=== PATIENT | male | born 1985 ===

== ENCOUNTER 2016-03-22 03:59 | Emergency (ER) | payer OTHER ==
[2016-03-22] MEDS ORDERED: TAMSULOSIN HCL 0.4 MG CAPSULE PO ONE (04:27)
[2016-03-22] MEDS ORDERED: HYDROmorphone HCL 1 MG/ML SYR ONE ×2 (04:27→06:01)
[2016-03-22] MEDS ORDERED: ONDANSETRON HCL 4 MG/2 ML VIAL ONE (04:27)
[2016-03-22] MEDS ORDERED: oxyCODONE/APAP 5/325 MG PREPAC 1 TAB TABLET PO ONE (04:32)
[2016-03-22 04:40] LABS: BLOOD UREA NITROGEN 14 mg/dL (9-20); CALCIUM 8.7 mg/dL (8.4-10.2); CHLORIDE 105 mmol/L (98-107); EST GLOMERULAR FILTRATION RATE > 60 mL/min; GLUCOSE 114 mg/dL (70-100); POTASSIUM 3.5 mmol/L (3.5-5.1); SODIUM 140 mmol/L (137-145)
[2016-03-22 05:34] LABS: URINE MUCUS NONE SEEN (Up to 25%); URINE SQUAMOUS EPITHELIAL CELL NONE SEEN (<= 15/hpf); URINE WBC NONE SEEN (0-4/hpf)
[2016-03-22 05:44] LABS: URINE APPEARANCE CLEAR; URINE BILIRUBIN NEGATIVE (NEGATIVE); URINE BLOOD 250 Ery/uL (3+) (NEGATIVE); URINE COLOR YELLOW; URINE GLUCOSE NORMAL (NEGATIVE); URINE KETONE NEGATIVE (NEGATIVE); URINE LEUKOCYTE ESTERASE NEGATIVE (NEGATIVE); URINE NITRITE NEGATIVE (NEGATIVE); URINE PH 5.5 (5-7); URINE PROTEIN 30mg/dL (1+) (NEG - TRACE); URINE RBC 50-100/hpf (0-5/hpf); URINE SPECIFIC GRAVITY 1.025 (0.001-1.035); URINE UROBILINOGEN 0.2mg/dL (Normal) (NEG-1mg/dL)
[2016-03-22 05:45] LABS: URINE CALCIUM OXALATE CRYSTALS MANY (Occasional)
[2016-03-22] MEDS ORDERED: KETOROLAC TROMETHAMINE 30 MG/ML VIAL ONE (06:01)
--- NOTE | 2016-03-22 08:04 | ER NURSING DOCUMENTATION ---
Nurse's Notes [facility] Name:Jayden Mccall Age:30 yrs Sex:Male :1985 Arrival Date:03/22/2016 Time:03:59 Bed4 Private MD: Diagnosis:Kidney Stone w/ Colic Presentation: 03/22 04:01 Acuity: NATALY 3 rh 04:07 Presenting complaint: Patient states: Pt was DX with two kidney stones two weeks ago. rh He was placed on a medication he cannot remember and was told he passed the stones. Pt had a follow up ultra sound ten days ago that showed no stones. PT is here tonight with left sided flank pain that radiates down into his groin, pt also is unable to urinate. onset 1 hour ago. Transition of care: Home. 04:07 Method Of Arrival: Walk In Triage Assessment: 04:09 General: Appears uncomfortable, Behavior is cooperative. Pain: Complains of pain in rh left low back and left femoral area. EENT: Oral mucosa is dry. Respiratory: Airway is patent. : Reports inability to void since this AM upon awaking pain. Derm: Skin is intact, is healthy with good turgor, Skin is pink, warm & dry. Historical: - Allergies: PENICILLINS; - Home Meds: 1. meloxicam oral - PMHx: KIDNEY STONES; - PSHx: Appendectomy; HERNIA REPAIR; - Tetanus: < 10 years. - Ebola Screening: : Patient negative for fever greater than or equal to 101.5 degrees Fahrenheit, and additional compatible Ebola Virus Disease symptoms. - Immunization history: Flu Vaccine < 1 year. - Social history: Smoking status: Patient states was never smoker of tobacco. Screenin:11 Infectious Disease Risk None. Abuse screen: Denies threats or abuse. Denies injuries rh from another. Nutritional screening: No deficits noted. Assessment: 04:10 See Triage Assessment done by same RN. rh 07:17 General: pt resting quietly. Pt needs to urinate before going home. . st 08:02 General: pt was able to urinate. urin was concentrated no stone present. . st Vital Signs: 04:05 BP 158 / 96; Pulse 71; Resp 18; Temp 97.6(O); Pulse Ox 96% on R/A; Weight 95.25 kg; rh Height 5 ft. 6 in. (167.64 cm); Pain 9/10; 06:36 BP 115 / 76; Pulse 81; Resp 16; Pulse Ox 93% on 2 lpm NC; rh 08:02 Pain 0/10; st 04:05 Body Mass Index 33.89 (95.25 kg, 167.64 cm) rh ED Course: 04:00 Patient arrived in ED. ma1 04:01 Hina Henry is Primary Nurse. rh 04:01 Triage completed. rh 04:09 Gurinder Zamudio MD is Attending Physician. jm 04:10 Notified ED Physician of patient's arrival and chief complaint. Dr. Zamudio notified. rh 04:11 Valuables Remains with patient Patient has correct armband on for positive rh identification. Bed in low position. Call light in reach. Side rails up X 1. Family accompanied patient. 04:17 Inserted peripheral IV: 20 gauge in left forearm and blood collected. rh 04:25 Oxygen Oxygen administration via nasal cannula @ 2L/min. rh 07:17 Diet: Patient given water. st 07:33 David Torres MD is Referral Physician. jm 07:33 Mervin Desouza MD is Referral Physician. jm 08:02 Bladder Scan performed. Volume in cc: 0. st Administered Medications: 04:19 Drug: NS 0.9% 1000 ml; Route: IV; Rate: bolus; Site: left forearm; rh 05:02 Follow up: IV Status: Completed infusion; IV Intake: 1000ml rh 04:20 Drug: Dilaudid 1 mg; Route: IVP; Site: left forearm; rh 04:30 Follow up: Response: Pain is decreased rh 04:20 Drug: Zofran 4 mg; Route: IVP; Infused Over: 2 mins; Site: left forearm; rh 04:30 Follow up: Response: No adverse reaction rh 04:20 Drug: Flomax - Tamsulosin Capsule 0.4 mg; Route: PO; rh 04:30 Follow up: Response: No adverse reaction rh 05:52 Drug: NS 0.9% 1000 ml; Route: IV; Rate: bolus; Site: left forearm; rh 06:35 Follow up: IV Status: Completed infusion; IV Intake: 1000ml rh 06:00 Drug: Dilaudid 1 mg; Route: IVP; Site: left wrist; fc 06:37 Follow up: Response: Pain is decreased rh 06:00 Drug: Toradol 30 mg; Route: IVP; Site: left wrist; 06:37 Follow up: Response: Pain is decreased rh 08:01 Drug: Percocet Tablet (5 mg-325 mg) 6 tabs; Route: PO; st 08:01 Follow up: Response: Pharmacy closed - take home med pack Point of Care Testing: Urine Dip: 05:20 pH: 5.5; ; Specific [place]: 1.025; Ketones: Negative; Glucose: Negative; Protein: rh Positive (+); Leukocytes: Negative; Nitrite: Negative ; Blood: Large (+++); Bilirubin: Negative ; Urobilinogen: Normal Intake: 05:02 IV: 1000ml; Total: 1000ml. rh 06:35 IV: 1000ml; Total: 2000ml. rh Output: 08:02 Urine: 100ml; Total: 100ml. Outcome: 04:16 Discharge ordered by . khurram 08:01 Discharged to home ambulatory. 08:01 Condition: improved 08:01 Discharge instructions given to patient, Instructed on discharge instructions, follow up and referral plans. medication usage, Prescriptions given X 3. 08:01 IV D/Jose R 08:04 Patient left the ED. 02 09:21 Discharge F/U Call: Unable to reach: no answer nf Signatures: Debby Panchal RN RN st Friel, Nicole, RN RN nf Meyer, John, MD MD jm Hofsess, Rachel rh collins, floyd fc Addison, Melissa ma1
--- NOTE | 2016-03-22 08:04 | ER PHYSICIAN DOCUMENTATION ---
Physician Documentation [facility] Name:Jayden Mccall Age:30 yrs Sex:Male :1985 Arrival Date:03/22/2016 Time:03:59 Bed4 Private MD: Gurinder Thompson Disposition: 03/22/16 04:16 Discharged to Home/Self Care. Impression: Kidney Stone w/ Colic. - Condition is Good. - Discharge Instructions: KIDNEY STONE w/ Colic. - Prescriptions for Percocet 5- 325 mg Oral Tablet - take 1 tablet by ORAL route every 6 hours As needed; 20 tablet. Zofran 4 mg Oral Tablet - take 1 tablet by ORAL route every 12 hours; 6 tablet. Flomax 0.4 mg Oral - take 1 capsule by ORAL route once daily 1/2 hour following the same meal each day; 20 capsule. - Medical Reconciliation form form. - Follow up: Private Physician; When: As needed; Reason: Continuance of care. Follow up: David Torres MD; When: 4- 6 days; Reason: Continuance of care. Follow up: Mervin Desouza MD; When: 4- 6 days; Reason: Continuance of care. - Problem is an ongoing problem. - Symptoms have improved. HPI: 03/22 04:00 This 30 yrs old /[place] Male presents to ER via Walk In with complaints of jm Possible Kidney Stone. 04:00 The patient complains of pain in the left low back and left mid back. The pain radiates jm L LQ. Onset: The symptom(s)/episode began/occurred today. Severity of pain: in the emergency department the pain is actually worse. The patient has experienced a previous episode, and the symptoms today are exactly the same, when dx w kideny stones. . The patient has not recently seen a physician. PT has known 2mm stone in the L kidney and is here for worsening pain. He passed one of the 2mm stones on that side, but was told there was another. He does not have any more pain meds. He feels dehydrated. . Historical: - Allergies: PENICILLINS; - Home Meds: 1. meloxicam oral - PMHx: KIDNEY STONES; - PSHx: Appendectomy; HERNIA REPAIR; - Tetanus: < 10 years. - Ebola Screening: : Patient negative for fever greater than or equal to 101.5 degrees Fahrenheit, and additional compatible Ebola Virus Disease symptoms. - Immunization history: Flu Vaccine < 1 year. - Social history: Smoking status: Patient states was never smoker of tobacco. ROS: 04:30 Constitutional: Negative for fatigue, fever. jm 04:30 ENT: Negative for sinus congestion, sinus pain, sore throat. 04:30 Cardiovascular: Negative for chest pain, paroxysmal nocturnal dyspnea. 04:30 Abdomen/GI: Positive for abdominal pain, Negative for nausea, vomiting. 04:30 Back: Negative for injury or acute deformity, decreased range of motion. 04:30 : Positive for urinary symptoms, pelvic pain, flank pain. Exam: 04:30 Constitutional: The patient appears alert, awake, obese, in obvious distress, mildly jm distressed. 04:30 Cardiovascular: Rate: normal, Rhythm: regular. 04:30 Abdomen/GI: Palpation: mild abdominal tenderness, in the left lower quadrant. 04:30 Back: pain, that is moderate, CVA tenderness, that is moderate, is noted on the left. 04:30 : CVA tenderness, on the left, Bladder: is normal. Vital Signs: 04:05 BP 158 / 96; Pulse 71; Resp 18; Temp 97.6(O); Pulse Ox 96% on R/A; Weight 95.25 kg; rh Height 5 ft. 6 in. (167.64 cm); Pain 9/10; 06:36 BP 115 / 76; Pulse 81; Resp 16; Pulse Ox 93% on 2 lpm NC; rh 08:02 Pain 0/10; st 04:05 Body Mass Index 33.89 (95.25 kg, 167.64 cm) rh MDM: 04:09 Patient medically screened. jm 15:32 Differential diagnosis: nephrolithiasis, pyelonephritis, UTI. Data reviewed: vital jm signs, nurses notes, old medical records, lab test result(s), and as a result, I will discharge patient. Counseling: I had a detailed discussion with the patient and/or guardian regarding: the historical points, exam findings, and any diagnostic results supporting the discharge/admit diagnosis, lab results, the need for outpatient follow up, with the patient's primary care provider, a urologist. Medication response: The patient's symptoms have improved. ED course: Pt better after meds and finally able to urinate after 2LNS and 500ml PO. No reason to repeat the scan, as we know there is a 2mm stone there. Pt ok w pain meds and flomax. Pt given uro f/u as needed. . 03/22 04:44 Order name: BASIC METABOLIC PANEL; Complete Time: 05:47 EDMS 03/22 05:46 Order name: UA W/ MICRO -CULTURE IF IND; Complete Time: 05:47 EDMS 03/22 04:14 Order name: Pulse Ox Continuous; Complete Time: 04:15 jm 03/22 04:15 Order name: Iv Saline Lock; Complete Time: 04:20 jm 03/22 05:29 Order name: Bladder Scan by RN; Complete Time: 05:43 rh 03/22 06:36 Order name: Oxygen; Complete Time: 06:36 rh Dispensed Medications: 04:19 Drug: NS 0.9% 1000 ml; Route: IV; Rate: bolus; Site: left forearm; rh 05:02 Follow up: IV Status: Completed infusion; IV Intake: 1000ml rh 04:20 Drug: Dilaudid 1 mg; Route: IVP; Site: left forearm; rh 04:30 Follow up: Response: Pain is decreased rh 04:20 Drug: Zofran 4 mg; Route: IVP; Infused Over: 2 mins; Site: left forearm; rh 04:30 Follow up: Response: No adverse reaction rh 04:20 Drug: Flomax - Tamsulosin Capsule 0.4 mg; Route: PO; rh 04:30 Follow up: Response: No adverse reaction rh 05:52 Drug: NS 0.9% 1000 ml; Route: IV; Rate: bolus; Site: left forearm; rh 06:35 Follow up: IV Status: Completed infusion; IV Intake: 1000ml rh 06:00 Drug: Dilaudid 1 mg; Route: IVP; Site: left wrist; fc 06:37 Follow up: Response: Pain is decreased rh 06:00 Drug: Toradol 30 mg; Route: IVP; Site: left wrist; fc 06:37 Follow up: Response: Pain is decreased rh 08:01 Drug: Percocet Tablet (5 mg-325 mg) 6 tabs; Route: PO; st 08:01 Follow up: Response: Pharmacy closed - take home med pack st Point of Care Testing: Urine Dip: 05:20 pH: 5.5; ; Specific [place]: 1.025; Ketones: Negative; Glucose: Negative; Protein: rh Positive (+); Leukocytes: Negative; Nitrite: Negative ; Blood: Large (+++); Bilirubin: Negative ; Urobilinogen: Normal Signatures: Debby Panchal, Gurinder Warren RN, MD MD jm Hofsess, Rachel rh collins, floyd fc
== END 2016-03-22 08:04 | disposition home or self-care (01) ==
LOC: ER 03:59
DX: N20.0 Calculus of kidney (principal); N23 Unspecified renal colic; E86.0 Dehydration; R82.99 Other abnormal findings in urine
CPT/HCPCS: 80048; 81001; 87086; 96361; 96374; 96375; 96376; 99284; J1170; J1885; J2405

== ENCOUNTER 2016-04-24 21:15 | Emergency (ER) | payer OTHER ==
[2016-04-24] MEDS ORDERED: LORazepam 1 MG TABLET ONE (21:48)
--- NOTE | 2016-04-24 21:53 | ER NURSING DOCUMENTATION ---
Nurse's Notes [facility] Name:Jayden Mccall Age:31 yrs Sex:Male :1985 Arrival Date:04/24/2016 Time:21:15 Bed1 Private MD:Tracy Wade Diagnosis:Anxiety Reaction Presentation: 04/24 21:19 Presenting complaint:. Presenting complaint: Patient states: felt weak today, bilateral sj shoulder/neck ache that radiates up to head, ears feel full, felt chest pressure/heaviness with shortness of breath. Tried to distract himself with TV but felt more and more panicky. Denies fever, chills, has full ROM of neck. Transition of care: Home. 21:19 Acuity: NATALY 3 sj 21:19 Method Of Arrival: Private Vehicle Triage Assessment: 21:23 General: Appears uncomfortable, Behavior is cooperative, pleasant. Pain: Complains of sj pain in left trapezius and right trapezius. EENT: Neuro: Level of Consciousness is awake, alert, Oriented to person, place, time, event. Neuro: Denies paresthesias. Cardiovascular: Capillary refill < 3 seconds. Respiratory: Airway is patent Respiratory effort is even, unlabored, Respiratory pattern is regular. Historical: - Allergies: PENICILLINS; cats; - Home Meds: 1. None 2. recently stopped Flomax and steroids - PMHx: KIDNEY STONES; sciatica; - PSHx: Appendectomy; umbilical hernia repair; - Tetanus: < 10 years. - Ebola Screening: : Patient negative for fever greater than or equal to 101.5 degrees Fahrenheit, and additional compatible Ebola Virus Disease symptoms. Patient denies exposure to infectious person. Patient denies travel to an Ebola-affected area in the 21 days before illness onset. No symptoms or risks identified at this time. . - Immunization history: Pneumococcal vaccine is not up to date, Patient has never been vaccinated Flu Vaccine >1 year. - Social history: Smoking status: Patient states former smoker of tobacco. Patient uses alcohol occasionally. Patient/guardian denies using marijuana. Screenin:24 Infectious Disease Risk None. Abuse screen: Denies threats or abuse. Denies injuries sj from another. Nutritional screening: No deficits noted. Assessment: 21:24 See Triage Assessment done by same RN. sj Vital Signs: 21:16 BP 136 / 90; Pulse 91; Resp 16; Temp 97.8; Pulse Ox 96% on R/A; Weight 95.25 kg; Height em1 5 ft. 6 in. (167.64 cm); Pain 3/10; 21:16 Body Mass Index 33.89 (95.25 kg, 167.64 cm) em1 ED Course: 21:16 Patient arrived in ED. em2 21:16 Physician, Otilia is Private Physician. em2 21:18 Gurinder Zmaudio MD is Attending Physician. khurram 21:19 Martha Arenas is Primary Nurse. sj 21:21 Triage completed. sj 21:24 Valuables Remains with patient Patient has correct armband on for positive sj identification. Bed in low position. Call light in reach. ED physician of patient's arrival and chief complaint. Dr. Zamudio notified. 21:27 Tracy Wade is Private Physician. em2 21:35 EKG done. (by ED staff). Reviewed by Gurinder Zamudio MD. sj 21:37 Tracy Wade is Referral Physician. khurram Administered Medications: 21:45 Drug: Ativan 1mg 1 mg; Route: Sublingual; sj 21:51 Follow up: Response: Dispensed at discharge. Outcome: 21:37 Discharge ordered by . khurram 21:50 Discharged to home with friend. sj 21:50 Condition: stable 21:50 Instructed on discharge instructions, follow up and referral plans. medication usage, Demonstrated understanding of instructions, medications, Prescriptions given X 1. 21:52 Patient left the ED. 04/25 11:20 Discharge F/U Call: Spoke with: patient. Have you filled your prescriptions? no. st Reasons not filled: pt has not had any more symptoms. Overall Care on a scale of 1-10 with 10 being the best care, you rate our care as: Other comments: pt states he is feeling much better and has had no reassurance of the symptoms. Signatures: Debby Panchal, RN Gurinder Warren MD MD jm [employer], [employer] em1 Antonio-reg, Bebe-reg em2 Martha Arenas
--- NOTE | 2016-04-24 21:53 | ER PHYSICIAN DOCUMENTATION ---
Physician Documentation [facility] Name:Jayden Mccall Age:31 yrs Sex:Male :1985 Arrival Date:04/24/2016 Time:21:15 Bed1 Private MD:Tracy Wade ED, John Disposition: 04/24/16 21:37 Discharged to Home/Self Care. Impression: Anxiety Reaction. - Condition is Good. - Discharge Instructions: Anxiety - ANXIETY REACTION. - Prescriptions for Ativan 1 mg Oral Tablet - take 1 tablet by ORAL route every 8 hours As needed; 10 tablet. - Medical Reconciliation form form. - Follow up: Tracy Wade; When: 4- 6 days; Reason: Continuance of care. - Problem is new. - Symptoms have improved. HPI: 04/24 22:00 This 31 yrs old /[place] Male presents to ER via Private Vehicle with jm complaints of Anxiety. 22:00 The patient presents to the emergency department with anxiety, over unknown jm circumstances. Onset: The symptom(s)/episode began/occurred yesterday, and became worse today. Associated signs and symptoms: Pertinent positives; chest pain, shortness of breath. The patient has experienced a previous episode. Pt feels tense in his shoulders and through his chest. He feels panic and anxious. He decided to come in to get help. . Historical: - Allergies: PENICILLINS; cats; - Home Meds: 1. None 2. recently stopped Flomax and steroids - PMHx: KIDNEY STONES; sciatica; - PSHx: Appendectomy; umbilical hernia repair; - Tetanus: < 10 years. - Ebola Screening: : Patient negative for fever greater than or equal to 101.5 degrees Fahrenheit, and additional compatible Ebola Virus Disease symptoms. Patient denies exposure to infectious person. Patient denies travel to an Ebola-affected area in the 21 days before illness onset. No symptoms or risks identified at this time. . - Immunization history: Pneumococcal vaccine is not up to date, Patient has never been vaccinated Flu Vaccine >1 year. - Social history: Smoking status: Patient states former smoker of tobacco. Patient uses alcohol occasionally. Patient/guardian denies using marijuana. ROS: 22:00 Constitutional: Negative for fever. jm 22:00 Cardiovascular: Positive for chest pain, Negative for palpitations. 22:00 Respiratory: Positive for shortness of breath. 22:00 Psych: Positive for anxiety, insomnia, Negative for depression, drug dependence, alcohol dependence, suicide gesture, suicidal ideation. Exam: 22:00 Constitutional: The patient appears alert, awake. 22:00 Chest/axilla: Inspection: normal, Palpation: is normal. 22:00 Cardiovascular: Rate: normal, Rhythm: regular. 22:00 Respiratory: Respirations: normal, Breath sounds: are normal. 22:00 Psych: Behavior/mood is pleasant, cooperative, anxious, Affect is calm. Vital Signs: 21:16 BP 136 / 90; Pulse 91; Resp 16; Temp 97.8; Pulse Ox 96% on R/A; Weight 95.25 kg; Height em1 5 ft. 6 in. (167.64 cm); Pain 3/10; 21:16 Body Mass Index 33.89 (95.25 kg, 167.64 cm) em1 MDM: 21:18 Patient medically screened. 22:00 Differential diagnosis: panic attack. Data reviewed: vital signs, nurses notes, EKG, and as a result, I will discharge patient. Test interpretation: by ED physician or midlevel provider: ECG. Counseling: I had a detailed discussion with the patient and/or guardian regarding: the historical points, exam findings, and any diagnostic results supporting the discharge/admit diagnosis. ECG:. Response to treatment: the patient's symptoms have markedly improved after treatment. ED course: Pt better after ativan, but I don't know why is having these. Hopefully they do not return after ativan. Pt can f/u at [facility] as needed. . 04/24 21:36 Order name: EKG - 12 Lead; Complete Time: 21:36 EC:00 Rhythm is regular. QRS [place] is Normal. [place] interval is normal. QRS interval is normal. QT interval is normal. No Q waves. T waves are Normal. No ST changes noted. Dispensed Medications: 21:45 Drug: Ativan 1mg 1 mg; Route: Sublingual; 21:51 Follow up: Response: Dispensed at discharge. Signatures: Gurinder Zamudio MD MD jm Janzen, Sarah
== END 2016-04-24 21:53 | disposition home or self-care (01) ==
LOC: ER 21:15
DX: F41.9 Anxiety disorder, unspecified (principal)
CPT/HCPCS: 93005; 99283